=== PATIENT | male | born 1955 | race Two or more races ===

== ENCOUNTER 2022-05-03 12:07 | Emergency (ER) | payer OTHER ==
[~2022-05-03] VITALS: Ht 157.5 cm; Wt 74.4 kg
== END 2022-05-04 09:38 | disposition home or self-care (01) ==
LOC: ER 12:07
DX: E87.5 Hyperkalemia (principal); E87.20 Acidosis, unspecified; E78.00 Pure hypercholesterolemia, unspecified; E11.22 Type 2 diabetes mellitus with diabetic chronic kidney disease; N18.30 Chronic kidney disease, stage 3 unspecified; Z20.822 Contact with and (suspected) exposure to COVID-19